=== PATIENT | male | born 1990 | race Hispanic/Latino ===

== ENCOUNTER 2018-07-12 15:13 | Emergency (ER) | payer SELFPAY | END 2018-07-12 15:31 | disposition home or self-care (01) | LOC: ERS 15:13 | DX: Z00.00 Encounter for general adult medical examination without abnormal findings (principal) | CPT/HCPCS: 99283 ==

== ENCOUNTER 2018-08-10 12:15 | Outpatient (CLI) | payer OTHER ==
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
== END 2018-08-10 12:16 | disposition home or self-care (01) ==
LOC: BICRAD 12:15
PROVIDERS: ATTEND Internal Medicine
DX: M79.5 Residual foreign body in soft tissue (principal)

== ENCOUNTER 2019-07-22 11:37 | Observation (INO) | payer SELFPAY ==
[2019-07-22] MEDS ORDERED: HYDROcodone/Acetaminophen 7.5/325 mg Tablet ONE (12:04)
[2019-07-22] MEDS ORDERED: Ondansetron ODT 4 MG TAB ONE (12:04)
[2019-07-22] MEDS ORDERED: Adacel (T-DAP) 0.5 ML SYRINGE ONE (12:23)
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
--- NOTE | 2019-07-22 13:24 | CT ---
CT head noncontrast HISTORY: Head injury. FINDINGS: There is no evidence of acute intracranial hemorrhage or infarct. The ventricles appear nor mal in size, shape and position. There is no mass effect or shift of midline structures. Visualized paranasal sinuses remain well aerated. IMPRESSION: No acute intracranial abnormalities are demonstrated.
[2019-07-22] MEDS ORDERED: cefTRIAXone\\ROCEPHIN 2 GM VIAL ONE (13:41)
--- NOTE | 2019-07-22 13:46 | CT ---
CT face noncontrast HISTORY: Fall. Facial injury. FINDINGS: The mandible, globes, and zygomatic arches are intact. Visualized paranasal sinuses remain well aerated. No displaced fractures are apparent. Stranding within the fat saphenous tissues over the left side of the face may be related to recent injury. Salivary glands are symmetric. IMPRESSION: No acute osseous abnormalities are demonstrated.
[2019-07-22 14:56] LABS: #Basophils 0.1 thou/uL (0.0-0.2); #Eosinphils 0.1 thou/uL (0.0-0.7); #Lymphocytes 1.2 thou/uL (1.20-3.40); #Monocytes 1.3 thou/uL (0.11-0.59); #Neutrophils 14.4 thou/uL (1.40-6.50); %Basophils 0.4 % (0.0-1.0); %Eosinophils 0.4 % (0.0-10.0); %Monocytes 7.4 % (0.0-10.0); %Neutrophils 84.8 % (42.0-75.0); Hemoglobin 14.1 g/dL (14.0-18.0); Mean Corpuscular HGB CONC 33.7 g/dL (32.0-36.0); Mean Corpuscular Hemoglobin 28.3 pg (27.0-31.0); Mean Corpuscular Volume 84.1 fL (78.0-98.0); Mean Platelet Volume 8.5 fL (7.4-10.4); Platelet Count 230 thou/uL (130-400); RBC Distribution Width 12.6 % (11.5-14.5); Red Blood Cell (RBC) Count 4.98 mill/uL (4.70-6.10)
[2019-07-22 15:18] LABS: ALT (SGPT) 14 U/L (8-55); AST (SGOT) 34 U/L (5-34); Albumin 4.6 g/dL (3.5-5.0); Alkaline Phosphatase 65 U/L (40-110); Anion Gap 14 mmol/L (10-20); BUN (Urea Nitrogen) 6 mg/dL (8.9-20.6); Bilirubin, Total 0.8 mg/dL (0.2-1.2); CRP (Inflammatory) Less than 0.50 mg/dL (= or < 0.5); Calc. Creatinine Clearance 0 mL/min (70-130); Calcium 8.9 mg/dL (7.8-10.44); Carbon Dioxide 23 mmol/L (22-29); Chloride 106 mmol/L (98-107); Estimated GFR-MDRD Greater than 90; Globulin 2.9 g/dL (2.4-3.5); Glucose 93 mg/dL (70-105); Protein, Total 7.5 g/dL (6.0-8.3); Sodium 139 mmol/L (136-145)
[2019-07-22] MEDS ORDERED: Dextrose 5% in Water 1,000 ML IV PRN (15:40)
[2019-07-22] MEDS ORDERED: Morphine 2 MG/ML SYRINGE SLOW IVP PRN (15:40)
[2019-07-22] MEDS ORDERED: Dextrose 50% Abboject 50 ML SYRINGE SLOW IVP PRN (15:40)
[2019-07-22] MEDS ORDERED: Ondansetron PF 4 MG/2 ML Vial IVP PRN (15:40)
[2019-07-22] MEDS ORDERED: hydrALAZINE 20 MG/ML VIAL SLOW IVP PRN (15:40)
[2019-07-22] MEDS ORDERED: Morphine 4 MG/ML VIAL ONE (15:42)
[2019-07-22] MEDS ORDERED: Clindamycin/D5W 600 mg/50 ml Premix Bag ONE (15:42)
[2019-07-22] MEDS ORDERED: traMADol HCl 50 MG TAB PO PRN (15:44)
[2019-07-22] MEDS ORDERED: Morphine 4 MG/ML VIAL SLOW IVP SCH (16:00)
[2019-07-22] MEDS ORDERED: Promethazine HCl 25 MG/ML VIAL SLOW IVP PRN (16:21)
[2019-07-22] MEDS ORDERED: Promethazine HCl 25 MG/ML VIAL IM PRN (16:21)
[2019-07-22] MEDS ORDERED: Ondansetron HCl/PF 4 MG/2 ML Vial IVP PRN (16:21)
[2019-07-22] MEDS ORDERED: Midazolam HCl 2 mg/2 ml Vial ONE (16:26)
[2019-07-22] MEDS ORDERED: Fentanyl 100 MCG/2 ML VIAL ONE ×4 (16:26→18:40)
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
[2019-07-22 18:25] LABS: INR-International Normal Ratio 1.1; Prothrombin Time 13.8 SEC (12.0-14.7)
[2019-07-22 19:18] VITALS: BMI 20.7
[2019-07-22] MEDS: Acetaminophen 500 MG TAB PO SCH ×2 (20:10→23:37)
[2019-07-22] MEDS: Ibuprofen 800 MG TAB PO SCH (20:10)
[2019-07-22] MEDS: Senokot S 8.6-50 MG TAB PO SCH (20:14)
[2019-07-22] MEDS ORDERED: Scopolamine 1.5 mg/72 hour Patch TD SCH (21:00)
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
[2019-07-22] MEDS: Gabapentin 300 MG CAP PO SCH (21:32)
--- NOTE | 2019-07-22 21:34 | PRG ---
DATE OF SERVICE: 07/22/2019 SUBJECTIVE: The patient has just returned from PACU, status post debridement and irrigation of left knee laceration and closure by Dr. Werner. The patient is currently complaining of severe right leg pain. chip loft worker used to communicate with the patient and family. The patient also reports some nausea and dizziness. The patient's nurse is at bedside currently, given patient his pain medication. The patient is in sinus rhythm without any ectopy on the cover seamer. OBJECTIVE: VITAL SIGNS: Stable, afebrile. GENERAL: The patient in moderate distress due to right leg pain. HEENT: Head is atraumatic and normocephalic. RESPIRATORY: Bilateral breath sounds clear, respirations even and unlabored. CARDIAC: Regular rate, regular rhythm, no murmurs. ABDOMEN: Soft, nontender, nondistended. EXTREMITIES: Moves all extremities, Adair bandage and knee immobilizer in place to right lower extremity. ASSESSMENT: 1. Status post mechanical fall while playing soccer. 2. Concussion. 3. 5 cm right knee laceration status post repair. PLAN: Continue telemetry monitoring overnight. We will increase the patient's diet as tolerated. We will keep maintenance fluids overnight to ensure until the patient is tolerating a regular diet. We will add gabapentin to the patient's pain regimen. We will have Physical and Occupational Therapy work with the patient in the morning. The plan was discussed with the patient and family who agrees. Job ID: [id number]
[2019-07-22 22:51] LABS: Amphetamine Not Detected (NotDetected); Barbiturates Screen Not Detected (NotDetected); Benzodiazepine Screen Not Detected (NotDetected); Cocaine Metabolite Screen Detected (NotDetected); Medtox Control Line Valid? VALID (VALID); Medtox Reader # READER 1; Methadone Not Detected (NotDetected); Methamphetamine Not Detected (NotDetected); Opiate Screen Detected (NotDetected); Oxycodone Screen Not Detected (NotDetected); Phencyclidine (PCP) Not Detected (NotDetected); THC/Cannabinoid Screen Detected (NotDetected); Tricyclic Screen Not Detected (NotDetected)
[2019-07-23] MEDS: traMADol HCl 50 MG TAB PO PRN ×4 (04:08→23:52)
[2019-07-23] MEDS: Acetaminophen 500 MG TAB PO SCH ×4 (04:09→23:52)
[2019-07-23] MEDS: Ibuprofen 800 MG TAB PO SCH ×3 (04:10→20:18)
[2019-07-23 04:31] LABS: #Basophils 0.1 thou/uL (0.0-0.2); #Eosinphils 0.1 thou/uL (0.0-0.7); #Monocytes 1.3 thou/uL (0.11-0.59); %Basophils 0.6 % (0.0-1.0); %Eosinophils 0.8 % (0.0-10.0); %Lymphocytes 16.1 % (21.0-51.0); %Monocytes 10.1 % (0.0-10.0); %Neutrophils 72.4 % (42.0-75.0); Hemoglobin 13.3 g/dL (14.0-18.0); Mean Corpuscular HGB CONC 34.1 g/dL (32.0-36.0); Mean Corpuscular Hemoglobin 29.2 pg (27.0-31.0); Mean Corpuscular Volume 85.6 fL (78.0-98.0); Mean Platelet Volume 9.5 fL (7.4-10.4); Platelet Count 201 thou/uL (130-400); RBC Distribution Width 12.6 % (11.5-14.5); Red Blood Cell (RBC) Count 4.55 mill/uL (4.70-6.10); White Blood Cell (WBC) Count 12.4 thou/uL (4.8-10.8)
[2019-07-23 04:39] LABS: Anion Gap 12 mmol/L (10-20); BUN (Urea Nitrogen) 5 mg/dL (8.9-20.6); Calc. Creatinine Clearance 140 mL/min (70-130); Calcium 8.5 mg/dL (7.8-10.44); Carbon Dioxide 23 mmol/L (22-29); Chloride 107 mmol/L (98-107); Estimated GFR-MDRD Greater than 90; Glucose 113 mg/dL (70-105); Phosphorus 2.8 mg/dL (2.3-4.7); Potassium 3.6 mmol/L (3.5-5.1); Sodium 138 mmol/L (136-145)
[2019-07-23] MEDS ORDERED: Potassium Chloride 20 MEQ TAB PO SCH (07:30)
[2019-07-23] MEDS ORDERED: PHOS-NAK 1 PKT PACK PO SCH (07:30)
[2019-07-23] MEDS: cefTRIAXone\\ROCEPHIN 1 GM in Sodium Chloride 0.9% 100 ML IVPB SCH (08:29)
[2019-07-23] MEDS: Senokot S 8.6-50 MG TAB PO SCH ×2 (08:30→20:07)
[2019-07-23] MEDS: Polyethylene Glycol 3350 17 GM Packet PO SCH (08:30)
[2019-07-23] MEDS: Gabapentin 300 MG CAP PO SCH ×3 (08:30→20:08)
[2019-07-23 10:14] LABS: Bilirubin Negative (Negative); Blood, Urine Negative (Negative); Clarity Clear (Clear); Glucose, Urine (Dipstick) Normal (Negative); Leukocyte Negative Leu/uL (Negative); Nitrite Negative (Negative); Protein, Urine (Dipstick) Negative (Neg-Trace); Urobilinogen Normal mg/dL (Less than 2)
--- NOTE | 2019-07-23 11:28 | OP ---
DATE OF PROCEDURE: 07/22/2019 PREOPERATIVE DIAGNOSIS: A 6 cm traumatic laceration with a 2 cm distal over the joint concerning for open joint. POSTOPERATIVE DIAGNOSIS: Open joint, right knee, 6 cm traumatic laceration, 2 cm traumatic laceration with debris within the wound. PROCEDURE PERFORMED: Incision and drainage, arthrotomy, right knee, closure of 2 cm traumatic retinacular laceration repair of IT band and closure of 8 cm of skin laceration. SPRAY WORKER: None. ANESTHESIA: Agata Mcdonald MD, staff. The patient received a LMA. ESTIMATED BLOOD LOSS: Less than 30 mL. TOURNIQUET TIME: 29 minutes at 250 mmHg. ANTIBIOTICS: Rocephin 2 g and clindamycin 600 mg. TOURNIQUET TIME: 29 minutes. COMPLICATIONS: None. HISTORY OF PRESENT ILLNESS: Mr. Sheikh is a 29-year-old male, who said he lacerated his right knee this morning, playing soccer falling on some grass and subsequently falling on the ground. He had some debris within the wound. There was concern he may have had other injuries that surely was not completely consistent with this injury. I discussed with the patient risks and benefits and I and D, closure, arthrotomy of the right knee to include pain, scar, bleeding, infection , damage to vital structures, decreased range of motion and strength, arthritis, loss of life or limb, blood clots. The patient understood the risks and benefits and elected to proceed. DESCRIPTION OF PROCEDURE: Time-out was performed designating the patient's right lower extremity as the operative site based on site, consents, and marking. Tourniquet was brought up and left for 29 minutes. After completion of this, I used a curved incision moving North and South from the main transverse 6 cm laceration on the lateral aspect to help to expose the knee. There was about a 2 cm arthrotomy, which when I injected a 6 mL syringe into the joint and flushed out, so was open. I extended the arthrotomy transversely stopping before the tendon, opened up the joint, was able to pass a tube for the cysto tubing and was able to wash total of 3L of fluids. I cleaned up the skin and the fascia before the arthrotomy and I removed some gross debris. I washed the skin, curetted the other two, washed both sides. Being pleased with cleaning of my arthrotomy and washout, I closed the arthrotomy with 0 Prolene and closed the skin with 3-0 nylon. I closed the 6 cm and 2 cm traumatic lacerations. I washed and ensured the joint was completely dried out , let the tourniquet down after 29 minutes, placed the patient in a soft tissue dressing and knee immobilizer. The patient will be weightbearing as tolerated. Received another dose of Rocephin. Tetanus is up to date. The patient will be discharged home in the morning if everything is okay. Job ID: [id number] [facility]
--- NOTE | 2019-07-23 14:05 | PRG ---
DATE OF SERVICE: 07/23/2019 SUBJECTIVE: The patient is currently telemetry observation postop day 1, status post debridement and irrigation of left knee laceration and closure by Dr. Werner. The patient is not currently complaining of any pain. We discussed with the patient his syncopal episode. The patient says the syncopal episode usually occurs at rest. We also discussed with the patient cocaine use, and it being a possible cause of his heart abnormalities. The patient was in sinus rhythm without ectopy on telemetry overnight. He is currently receiving pain medication and he is on a regular diet. The patient is also receiving ceftriaxone. The patient was requesting medication for erectile dysfunction due to UDS has been positive for cocaine and marijuana. We discussed that the drugs he is taking are likely the cause of his erectile dysfunction, but due to his syncopal episodes and possible heart abnormality, we discussed with him how this medication would not be good to use at this time. OBJECTIVE: VITAL SIGNS: Stable. GENERAL: The patient is lying comfortably in bed. HEENT: Head is atraumatic and normocephalic. RESPIRATORY: The patient has equal and symmetric chest expansion. The patient' s breathing is unlabored. EXTREMITIES: Neurovascularly intact x4. Moves all extremities well. Knee immobilizer placed on right lower extremity. ASSESSMENT: 1. Status post mechanical fall while playing soccer. 2. Concussion with left orbital swelling. 3. A 5 cm right knee laceration status post repair. PLAN: Continue on telemetry today. We will likely move to surgical floor if doing well. The patient is now on a regular diet. He will work with PT and OT this morning. This patient was seen and examined by Dr. Payton. Job ID: [id number] [facility]
--- NOTE | 2019-07-23 14:22 | CON ---
DATE OF CONSULTATION: HISTORY OF PRESENT ILLNESS: Mr. Aguilar Holt is status post arthrotomy closure and washout of his right knee laceration. The patient is resting comfortably in bed. Pain is controlled and neurovascularly intact. Knee immobilizer in place. Afebrile. Vital signs are stable. ASSESSMENT AND PLAN: The patient will be weightbearing as tolerated in the knee immobilizer. He will need to follow up in about 2 weeks to remove sutures and then be discharged per Trauma. The patient received 24 hours of IV antibiotics for coverage. Job ID: [id number]
[2019-07-23] MEDS: Aspirin 81 mg Enteric Coated Tablet PO SCH (20:08)
--- NOTE | 2019-07-24 01:43 | PRG ---
DATE OF SERVICE: 07/23/2019 SUBJECTIVE: The patient was seen this evening on telemetry floor. The patient is postop day #1 status post debridement and irrigation of right knee laceration and closure by Dr. Werner. The patient is currently resting, in no distress. The patient reports some moderate pain to right knee. The patient continues to tolerate a regular diet. OBJECTIVE: VITAL SIGNS: Stable, afebrile. GENERAL: Well-appearing male, lying in hospital bed, in no acute distress. HEENT: Head is atraumatic and normocephalic. RESPIRATORY: Equal chest rise and fall, respirations are even and nonlabored. EXTREMITIES: Moves all extremities, neurovascularly intact x4. The patient with a right knee immobilizer in place to right lower extremity. DIAGNOSTIC DATA: Echocardiogram, ejection fraction visually estimated at 45% to 50%. Mild global hypokinesis. ASSESSMENT: 1. Status post mechanical fall while playing soccer. 2. Concussion with left orbital swelling. 3. A 5 cm right knee laceration, status post repair. PLAN: Continue current p.o. pain regimen. Continue regular diet as tolerated. The patient will most likely be discharged home tomorrow with followup with Orthopedic Surgery, Dr. Werner in 2 weeks. Job ID: [id number]
[2019-07-24] MEDS: Ibuprofen 800 MG TAB PO SCH ×2 (05:30→14:50)
[2019-07-24] MEDS: Acetaminophen 500 MG TAB PO SCH ×2 (05:33→11:17)
[2019-07-24 07:27] VITALS: BP 108/66; TEMP 97.7
[2019-07-24] MEDS: Gabapentin 300 MG CAP PO SCH ×2 (08:07→14:50)
[2019-07-24] MEDS: Senokot S 8.6-50 MG TAB PO SCH (08:07)
[2019-07-24] MEDS: cefTRIAXone\\ROCEPHIN 1 GM in Sodium Chloride 0.9% 100 ML IVPB SCH (08:07)
[2019-07-24] MEDS: Aspirin 81 mg Enteric Coated Tablet PO SCH (08:08)
[2019-07-24] MEDS: Polyethylene Glycol 3350 17 GM Packet PO SCH (08:08)
--- NOTE | 2019-07-24 13:24 | PDOC.GSPN ---
Surgery Progress Note: Subj - Subjective Patient reports: feels better, pain well controlled, tolerating liquids well, no bowel movement (Mr. Sheikh is a 29 yo HM with past medical history of cocaine abuse, who is POD #2 from a right knee I&D, arthrotomy. Pain is well controlled, patient tolerating po. Ambulating with expected difficulty but is able to get off bed and walk with crutches. Patient endorsed dificulty urinating and "peeing orange".) Narrative: Patient denied fever, chills, vomit, flatus, bowel movement, chest pain, SOB, presyncope, syncope, lightheadedness, dizziness. Surgery Progress Note: Obj - Vital signs Vital signs: Vital Signs - Most Recent Temp Pulse Resp BP Pulse Ox 97.7 F 58 L 16 108/66 98 07/24/19 07:25 07/24/19 07:25 07/24/19 07:25 07/24/19 07:25 07/24/19 07:25 - Physical Exam General: no distress, well developed, well nourished, moderate pain Neck: other (supple, FROM.) Cardiovascular: other (Bradycardia, with regular rate. No murmurs, gallops, rubs , or clicks noted.) Respiratory: clear to auscultation, normal expansion, normal respiratory effort , breath sounds present Abdomen: soft, non tender, nondistended, positive bowel sounds (diminished bowel sounds.) Genitourinary (Male): other (Penis noted to have an artifact embeded under the skin.) Psychiatric: oriented to time, oriented to person, oriented to place Wound: healing well Surgery Progress Note: Results - Labs Result Diagrams: 07/23/19 03:37 07/23/19 03:37 Surgery Progress Note: A/P - Problem (1) Laceration of knee, right Current Visit: Yes Code(s): S81.011A - LACERATION WITHOUT FOREIGN BODY, RIGHT KNEE, INIT ENCNTR Status: Acute Assessment and Plan: 1. Pain well controlled 2. Patient tolerating po 3. Patient able to ambulate; consult PT/OT to make sure patient is ready for discharge. (2) Syncope and collapse Current Visit: Yes Code(s): R55 - SYNCOPE AND COLLAPSE Status: Acute - Plan Plan: 1. No complaint of syncope during his hospitalization. 2. Patient's echo showed 40-50% ejection fraction, and global hypokinesis 3. Cardiology consulted, wait on their recommendation for discharge. 4. Discussed with patient importance of stop using cocaine to prevent aggravation of his heart condition.
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
--- NOTE | 2019-07-24 18:45 | CON ---
DATE OF CONSULTATION: HISTORY OF PRESENT ILLNESS: The patient is a 29-year-old gentleman, who presents for cardiac evaluation after having a fall. The patient has no previous cardiac history. He has a long history of use of illicit drugs. The patient was admitted after he had a fall and underwent knee surgery. The patient had an echocardiogram, which revealed mild decrease in left ventricular systolic function. The patient reports having occasional palpitations. He denies having any dyspnea, PND, or orthopnea. PAST MEDICAL HISTORY: None. PAST SURGICAL HISTORY: Stomach surgery for exploratory laparotomy. SOCIAL HISTORY: The patient has a long history of tobacco use. He uses illicit drugs including cocaine. MEDICATIONS: None. ALLERGIES: HE IS ALLERGIC TO PENICILLIN. REVIEW OF SYSTEMS: Ten-point system otherwise unremarkable. PHYSICAL EXAMINATION: GENERAL: This is a thin gentleman, in no acute distress. VITAL SIGNS: Blood pressure is 108/66. NECK: Showed no jugular venous distention. LUNGS: Clear to auscultation. HEART: Regular rate and rhythm. Normal S1, S2. No murmurs. ABDOMEN: Nondistended. EXTREMITIES: Showed no edema. He has a brace over his knee. VASCULAR: Radial pulses 2+. LABORATORY AND DIAGNOSTIC DATA: White blood cell count 12.4, hemoglobin 13.3, hematocrit 38.9, and his platelets are 201. Sodium was 138, potassium 3.6, chloride 107, bicarbonate 23, BUN 5, and creatinine 0.7. His EKG revealed normal sinus rhythm, normal ECG. Echocardiogram revealed mild decreased left ventricular systolic function, estimated ejection fraction 45% to 50%, mild global hypokinesis. No significant valvular regurgitation. IMPRESSION: 1. Mild decrease in left ventricular systolic function. 2. Status post knee surgery. 3. History of illicit drug use. PLAN: This gentleman was found to have a mild decrease in left ventricular systolic function. The patient has been highly advised to discontinue the use of illicit drugs including cocaine. From a cardiac standpoint, would avoid beta bessie therapy because of his drug use. Would at this time start him on low-dose lisinopril. Would repeat an echocardiogram. We will follow this patient with you throughout his hospitalization. Job ID: [id number] MTDD
[2019-07-25 01:05] LABS: Chlam.trachomatis by PCR,Urine Not Detected (NotDetected)
[2019-07-25] MEDS ORDERED: Lisinopril 2.5 MG TAB PO SCH (09:00)
--- NOTE | 2019-07-30 07:59 | EKG ---
Test Reason : Blood Pressure : / mmHG Vent. Rate : 067 BPM Atrial Rate : 067 BPM P-R Int : 146 ms QRS Dur : 096 ms QT Int : 376 ms P-R-T Axes : 036 079 047 degrees QTc Int : 397 ms Normal sinus rhythm Normal ECG Confirmed by ROXANA SMITH (2) on 07/30/2019 7:58:42 AM Referred By: XAVIER Confirmed By:ROXANA SMITH
== END 2019-07-24 16:25 | disposition home or self-care (01) ==
LOC: ERS 11:37 → 2SW 13:30 → T4-A 15:19
PROVIDERS: ADMIT Orthopaedic Surgery; ATTEND Orthopaedic Surgery
PROC: 0SCC0ZZ Extirpation of Matter from Right Knee Joint, Open Approach (ICD-10-PCS; principal; 2019-07-22)
DX: S81.021A Laceration with foreign body, right knee, initial encounter (principal); S06.0X9A Concussion with loss of consciousness of unspecified duration, initial encounter; F17.210 Nicotine dependence, cigarettes, uncomplicated; R55 Syncope and collapse; Z88.0 Allergy status to penicillin; W01.110A Fall on same level from slipping, tripping and stumbling with subsequent striking against sharp glass, initial encounter; Y93.66 Activity, soccer
CPT/HCPCS: 36415; 70450; 70486; 72100; 80048; 80053; 80306; 80307; 81003; 83735; 84100; 85025; 85652; 85730; 86140; 86850; 86900; 86901; 87491; 87591; 90471; 90715; 93005; 93010; 93306; 96365; 96366; 96375; G0378; J0696; J2250; J2270; J3010; J3490; Q0162

== ENCOUNTER 2020-10-06 17:48 | Emergency (ER) | payer SELFPAY | END 2020-10-06 18:30 | disposition home or self-care (01) | LOC: ERS 17:48 | DX: Z04.1 Encounter for examination and observation following transport accident (principal); F17.210 Nicotine dependence, cigarettes, uncomplicated | CPT/HCPCS: 99284 ==